=== PATIENT | female | born 1990 | race African-American/Black ===

== ENCOUNTER 2021-09-13 00:58 | Emergency (ER) | payer MEDICAID ==
[~2021-09-13] VITALS: Ht 177.8 cm; Wt 104.2 kg
[2021-09-13 01:20] VITALS: BP 118/75
== END 2021-09-13 03:30 | disposition left against medical advice (07) ==
LOC: ER 00:58
DX: Z53.21 Procedure and treatment not carried out due to patient leaving prior to being seen by health care provider (principal)

== ENCOUNTER 2023-11-27 00:08 | Emergency (ER) | payer MEDICAID ==
[~2023-11-27] VITALS: Ht 177.8 cm; Wt 115.0 kg
[2023-11-27 00:10] VITALS: BP 150/83; PULSE 81; RESP 16; TEMP 98.1; O2SAT 97
[2023-11-27] MEDS ORDERED: MAGNESIUM/ALUMINUM HYDROXIDE/SIMETHICONE 30ML UDC PO ONE (00:15)
[2023-11-27] MEDS ORDERED: ONDANSETRON 4MG ODT PO NR (00:30)
[2023-11-27] MEDS: ONDANSETRON HCL 4MG/2ML INJ IV STA (00:30)
[2023-11-27 00:36] LABS: BASOPHILS % 0.3 % (0.0-2.0); EOSINOPHILS % 3.4 % (0.0-5.0); HEMOGLOBIN. 11.9 g/dL (12.0-16.0); LYMPHOCYTES % 48.3 % (20.0-50.0); MEAN CORPUSCULAR HEMOGLOBIN 30.7 pg (28.0-32.0); MEAN CORPUSCULAR HGB CONC 33.1 g/dL (31.0-37.0); MEAN CORPUSCULAR VOLUME 92.6 fL (81.0-99.0); MEAN PLATELET VOLUME 9.7 fl (7.4-10.4); MONOCYTES % 8.2 % (2.0-8.0); NEUTROPHILS % 39.8 % (40.0-76.0); PLATELET 237 x1000/uL (130-400); RED BLOOD CELL COUNT 3.89 mill/uL (4.2-5.4); RED CELL DISTRIBUTION WIDTH 13.4 % (11.6-14.6); WHITE BLOOD COUNT 7.5 x1000/uL (4.5-11.0)
[2023-11-27 00:52] LABS: CHLORIDE 111 mEq/L (98-107); POTASSIUM 3.4 mEq/L (3.5-5.1); SODIUM 140 mEq/L (136-145)
[2023-11-27 00:53] LABS: CALCIUM 8.6 mg/dL (8.7-10.4); CARBON DIOXIDE 23 mEq/L (21-32)
[2023-11-27 00:55] LABS: HCG SCREEN NEGATIVE
[2023-11-27 00:58] LABS: CREATININE 0.7 mg/dL (0.6-1.0); GLUCOSE 117 mg/dL (70-105); UREA NITROGEN BLOOD 14 mg/dL (9-23)
[2023-11-27 01:00] LABS: ETHANOL BLOOD < 10 mg/dL (<10); TROPONIN I HIGH SENSITIVITY < 4 ng/L (3.0-34)
== END 2023-11-27 02:00 | disposition left against medical advice (07) ==
LOC: ER 00:08
DX: R07.89 Other chest pain (principal)
CPT/HCPCS: 36415; 71045; 80048; 80320; 83880; 84484; 84703; 85025; 93005; 99285; G0480

== ENCOUNTER 2023-11-27 03:24 | Emergency (ER) | payer MEDICAID ==
[~2023-11-27] VITALS: Ht 180.3 cm; Wt 101.0 kg
[2023-11-27 03:29] VITALS: BP 134/88; PULSE 62; RESP 16; TEMP 98.7; O2SAT 98
[2023-11-27 05:02] LABS: BASOPHILS % 0.2 % (0.0-2.0); EOSINOPHILS % 1.3 % (0.0-5.0); HEMATOCRIT. 35.3 % (36.0-48.0); LYMPHOCYTES % 36.1 % (20.0-50.0); MEAN CORPUSCULAR HEMOGLOBIN 31.5 pg (28.0-32.0); MEAN CORPUSCULAR HGB CONC 33.8 g/dL (31.0-37.0); MEAN CORPUSCULAR VOLUME 93.1 fL (81.0-99.0); MEAN PLATELET VOLUME 10.1 fl (7.4-10.4); MONOCYTES % 6.9 % (2.0-8.0); NEUTROPHILS % 55.5 % (40.0-76.0); PLATELET 239 x1000/uL (130-400); RED BLOOD CELL COUNT 3.79 mill/uL (4.2-5.4); RED CELL DISTRIBUTION WIDTH 13.5 % (11.6-14.6); WHITE BLOOD COUNT 8.6 x1000/uL (4.5-11.0)
[2023-11-27 05:27] LABS: CHLORIDE 109 mEq/L (98-107); POTASSIUM 3.4 mEq/L (3.5-5.1); SODIUM 141 mEq/L (136-145)
[2023-11-27 05:28] LABS: CALCIUM 8.7 mg/dL (8.7-10.4); CARBON DIOXIDE 23 mEq/L (21-32)
[2023-11-27 05:33] LABS: CREATININE 0.8 mg/dL (0.6-1.0); GLUCOSE 104 mg/dL (70-105); UREA NITROGEN BLOOD 11 mg/dL (9-23)
[2023-11-27 05:50] LABS: TROPONIN I HIGH SENSITIVITY < 4 ng/L (3.0-34)
== END 2023-11-27 10:08 | disposition left against medical advice (07) ==
LOC: ER 03:24
DX: R07.9 Chest pain, unspecified (principal); Z53.21 Procedure and treatment not carried out due to patient leaving prior to being seen by health care provider
CPT/HCPCS: 36415; 80048; 84484; 85025; 93005